=== PATIENT | female | born 1980 | race Caucasian/White ===

== ENCOUNTER 2019-03-06 09:58 | Emergency (ER) | payer SELFPAY ==
[~2019-03-06] VITALS: Ht 162.6 cm; Wt 72.6 kg
[2019-03-06 10:17] VITALS: BP 146/81
[2019-03-06 10:44] LABS: BILIRUBIN,URINE NEGATIVE (NEG); CLARITY,URINE CLOUDY; COLOR,URINE YELLOW; NITRITE,URINE NEGATIVE (NEG); PROTEIN,URINE 100 mg/dL (NEG-TRACE); UROBILINOGEN,URINE 0.2 mg/dL (0.2 mg/dL)
--- NOTE | 2019-03-06 11:12 | PHYS DOC ---
Past Medical History Past Medical History: No Pertinent History Past Surgical History: Alcohol Use: Occasionally Drug Use: None Adult General Chief Complaint Chief Complaint: PAIN ON URINATION [facility] HPI Patient is a 38 year old female who presents with urinary frequency, dysuria this been ongoing for 3 days. The patient denies any fever. Denies any other complaints. Review of Systems Review of Systems Constitutional: Denies fever or chills [] Eyes: Denies change in visual acuity, redness, or eye pain [] HENT: Denies nasal congestion or sore throat [] Respiratory: Denies cough or shortness of breath [] Cardiovascular: No additional information not addressed in HPI [] GI: Denies abdominal pain, nausea, vomiting, bloody stools or diarrhea [] : Reports dysuria and frequency. Musculoskeletal: Denies back pain or joint pain [] Integument: Denies rash or skin lesions [] Neurologic: Denies headache, focal weakness or sensory changes [ Complete systems were reviewed and found to be within normal limits, except as documented in this note. Physical Exam Physical Exam Constitutional: Well developed, well nourished, no acute distress, non-toxic appearance. [] HENT: Normocephalic, atraumatic, bilateral external ears normal, oropharynx moist, no oral exudates, nose normal. [] Eyes: PERRLA, EOMI, conjunctiva normal, no discharge. [] Neck: Normal range of motion, no tenderness, supple, no stridor. [] Skin: Warm, dry, no erythema, no rash. [] Back: No tenderness, no CVA tenderness. [] Extremities: No tenderness, no cyanosis, no clubbing, ROM intact, no edema. [] Neurologic: Alert and oriented X 3, normal motor function, normal sensory function, no focal deficits noted. [] Psychologic: Affect normal, judgement normal, mood normal. [] Current Patient Data Vital Signs Vital Signs Date Time Temp Pulse Resp B/P (MAP) Pulse Ox O2 Delivery O2 Flow Rate FiO2 03/06/19 10:17 98.0 94 16 146/81 (102) 99 Room Air 98.0 Lab Values Laboratory Tests Test 03/06/19 10:05 03/06/19 10:15 Urine Collection Type Unknown Urine Color Yellow Urine Clarity Cloudy Urine pH 6.0 Urine Specific Joseph 1.020 Urine Protein 100 mg/dL (NEG-TRACE) Urine Glucose (UA) Negative mg/dL (NEG) Urine Ketones (Stick) Trace mg/dL (NEG) Urine Blood Moderate (NEG) Urine Nitrite Negative (NEG) Urine Bilirubin Negative (NEG) Urine Urobilinogen Dipstick 0.2 mg/dL (0.2 mg/dL) Urine Leukocyte Esterase Large (NEG) Urine RBC 11-20 /HPF (0-2) Urine WBC >40 /HPF (0-4) Urine Squamous Epithelial Cells Few /LPF Urine Bacteria Moderate /HPF (0-FEW) Urine Mucus Marked /LPF POC Urine HCG, Qualitative Hcg negative (Negative) EKG EKG [] Radiology/Procedures Radiology/Procedures [] Course & Med Decision Making Course & Med Decision Making Pertinent Labs and Imaging studies reviewed. (See chart for details) Will get UA/Preg Test. Urine shows leukocytes with hematuria. Will prescribe Keflex for UTI. Dragon Disclaimer Dragon Disclaimer This electronic medical record was generated, in whole or in part, using a voice recognition dictation system. Departure Departure Impression: Primary Impression: Urinary tract infection Disposition: HOME, SELF-CARE Condition: STABLE Referrals: NO PCP (PCP) Patient Instructions: Urinary Tract Infection Additional Instructions: Thank you for visiting [facility]. We appreciate you trusting us with your care. If any additional problems come up don't hesitate to return to visit us. Please follow up with your primary care provider so they can plan additional care if needed and know about the problem that you had. If symptoms worsen come back to the Emergency Department. Any concerning symptoms that start such as chest pain, shortness of air, weakness or numbness on one side of the body, running high fevers or any other concerning symptoms return to the ER. You have been prescribed an antibiotic today to help fight your infection. Please take all of the antibiotic as directed. If after 48 hours the infection is not improving, please return for more care. If the infection worsens, return to ER for additional care. Scripts Cephalexin (KEFLEX) 500 Mg Capsule 1 CAP PO BID for 7 Days, #14 CAP 0 Refills Prov: JOHNSTONWILLIAM APRN 03/06/19 Problem Qualifiers Primary Impression: Urinary tract infection Urinary tract infection type: acute cystitis Hematuria presence: with hematuria Qualified Codes: N30.01 - Acute cystitis with hematuria WILLIAM JOHNSTON APRN Mar 06, 2019 11:12
[2019-03-06 11:18] LABS: BACTERIA,URINE MODERATE /HPF (0-FEW); SQUAMOUS EPITHELIAL CELL,UR FEW /LPF; WBC,URINE >40 /HPF (0-4)
[2019-03-06] MEDS ORDERED: CEPH-264 PO (11:26)
== END 2019-03-06 11:43 | disposition home or self-care (01) ==
LOC: ER 09:58
DX: N30.01 Acute cystitis with hematuria (principal); Z98.890 Other specified postprocedural states
CPT/HCPCS: 81001; 81025; 87086; 87186; 99284

== ENCOUNTER 2019-11-11 14:13 | Emergency (ER) | payer SELFPAY ==
[~2019-11-11] VITALS: Ht 162.6 cm; Wt 68.0 kg
[~2019-11-11 14:13] MED LIST: CEPH-264 PO
[2019-11-11 14:22] VITALS: BP 136/89
[2019-11-11] MEDS ORDERED: SULF1TAB23 PO (14:48)
--- NOTE | 2019-11-11 14:48 | PHYS DOC ---
Past Medical History Past Medical History: No Pertinent History Past Surgical History: Smoking Status: Current Every Day Smoker Alcohol Use: Occasionally Drug Use: None General Adult EDM: Chief Complaint: UPPER EXTREMITY PAIN HPI: HPI: Patient is a 39 year old female who presents to the ED today with multiple complaints. Patient is complaining of a wound/abscess on the right forearm for 1 week. She states she used [id number] remedy and the abscess opened up and drained. She is also complaining of another wound on the right foot that she believes had a splinter. She does not know if she removed the splint or not but she states she has pain to the area when she walks. She is also concerned she has an STD and would like to be and treated. She states the boyfriend has been running "wild" and came back and gave her chavez and whenever this happens it means he is cheating. Review of Systems: Review of Systems: Constitutional: Denies fever or chills. [] GI: Denies abdominal pain, nausea, vomiting, bloody stools or diarrhea. [] : Reports concern for STDs. Denies dysuria. [] Musculoskeletal: Denies back pain or joint pain. [] Integument: Reports wound to the right forearm and right foot. Neurologic: Denies headache, focal weakness or sensory changes. [] Psychiatric: Denies depression or anxiety. [] Heart Score: Risk Factors: Risk Factors: DM, Current or recent (<one month) smoker, HTN, HLP, family history of CAD, obesity. Risk Scores: Score 0 - 3: 2.5% MACE over next 6 weeks - Discharge Home Score 4 - 6: 20.3% MACE over next 6 weeks - Admit for Clinical Observation Score 7 - 10: 72.7% MACE over next 6 weeks - Early Invasive Strategies Physical Exam: PE: Constitutional: Well developed, well nourished, no acute distress, non-toxic appearance. [] Abdomen: Bowel sounds normal, soft, no tenderness, no masses, no pulsatile masses. [] Skin: Warm, dry, right mid forearm with an open abscess approximately 2 x 2 cm with surrounding cellulitis. Right dorsal foot between the big toe and the second toe metatarsal distal end with an open area approximately 0.5 cm. There is trace cellulitis around this region. +2 right pedal pulse. +2 right radial pulse. Full range of motion to the right upper and lower extremities. Cap refill less than 2 seconds the right upper and lower extremities. She has multiple track negrete on the upper and lower extremities suspicious of drug use. Back: No tenderness, no CVA tenderness. [] Extremities: No tenderness, no cyanosis, no clubbing, ROM intact, no edema. [] Neurologic: Alert and oriented X 3, normal motor function, normal sensory function, no focal deficits noted. [] Psychologic: Patient is restless, appears to be intoxicated on something. EKG: EKG: [] Radiology/Procedures: Radiology/Procedures: [] Course & Med Decision Making: Course & Med Decision Making Pertinent Labs and Imaging studies reviewed. (See chart for details) This is a 39-year-old female patient presenting to the ED today with complaints of abscess to the right forearm and right foot. Abscess of the right forearm is already opened and drained. Right foot appears to be in open wound with no drainage. She has track negrete to upper and lower extremities suspicious of drug use Patient would also like to be treated for STDs. Patient was given STD treatment in the ED, tetanus updated. Discharged on Bactrim. Provided return precautions and discharged in stable condition. Dragon Disclaimer: Dragon Disclaimer: This electronic medical record was generated, in whole or in part, using a voice recognition dictation system. Departure Departure Impression: Primary Impression: Concern about STD in female without diagnosis Additional Impressions: Abscess of right forearm Wound of right foot Disposition: 01 HOME, SELF-CARE Condition: STABLE Referrals: NO PCP (PCP) Follow-up with your own doctor in 1 to 2 weeks Patient Instructions: Abscess Additional Instructions: Please complete the prescribed antibiotics. Clean your wounds with soap and quentin er daily. Ensure you soak the upper and lower extremity wounds in warm water with Epsom salts twice a day. Take the prescribed antibiotics until completed. Ensure you contact your sex partners and let them know you were treated for STDs and ask them to seek treatment too. Scripts Sulfamethoxazole/Trimethoprim (BACTRIM 400-80 MG TABLET) 1 Each Tablet 1 TAB PO BID for 10 Days, #20 TAB 0 Refills Prov: RENEEADA ESTELLE 11/11/19 Justicifation of Admission Dx: Justifications for Admission: Justification of Admission Dx: N/A ADA DURAN APRN Nov 11, 2019 14:48
[2019-11-11] MEDS: AZITHROMYCIN 250 MG TABLET. PO ONE (15:10)
[2019-11-11] MEDS: metroNIDAZOLE 500 MG TABLET PO ONE (15:10)
[2019-11-11] MEDS: cefTRIAXone IM 250 MG VIAL IM ONE (15:12)
[2019-11-11] MEDS: DIPH,PERTUSS(ACELL),TET VAC/PF 0.5 ML SYRINGE. VAX IM ONE (15:12)
== END 2019-11-11 15:13 | disposition home or self-care (01) ==
LOC: ER 14:13
DX: L02.413 Cutaneous abscess of right upper limb (principal); L02.611 Cutaneous abscess of right foot; Z20.2 Contact with and (suspected) exposure to infections with a predominantly sexual mode of transmission; F17.200 Nicotine dependence, unspecified, uncomplicated
CPT/HCPCS: 90471; 90715; 96372; 99284; J0696

== ENCOUNTER 2019-11-19 14:00 | Emergency (ER) | payer SELFPAY ==
[~2019-11-19] VITALS: Ht 162.6 cm; Wt 66.4 kg
[~2019-11-19 14:00] MED LIST changes: +SULF1TAB23 PO
[2019-11-19 14:41] VITALS: BP 112/66
--- NOTE | 2019-11-19 15:09 | PHYS DOC ---
Past Medical History Past Medical History: Anxiety Past Surgical History: , Tubal ligation Smoking Status: Current Every Day Smoker Additional Information: 04/08 ppd Alcohol Use: Occasionally Drug Use: None General Adult EDM: Chief Complaint: UPPER EXTREMITY PAIN HPI: HPI: Patient is a 39-year-old female who presents to the emergency room complaining of left neck pain that radiates into her left arm. She has numbness in fingers 3 through 5 intermittently. She states that this has been ongoing for the last 2 days. She had a tetanus shot 2 days ago and she thinks that this may be related as it was given in the same arm. She denies any fever, chills, sweats, trauma. Review of Systems: Review of Systems: General: Denies fever, chills, sweats, fatigue Eyes: Denies drainage, blurred vision, eye redness HENT: Denies rhinorrhea, sore throat, earache Respiratory: Denies cough, shortness of breath, wheezing Cardiac: Denies edema, palpitations, chest pain GI: Denies abdominal pain, Nausea, vomiting MSK: Denies back pain.reports neck pain Skin: Denies rash, jaundice Neuro: Denies headache, dizziness reports numbness in hand Psychiatric: Denies SI/HI Heart Score: Risk Factors: Risk Factors: DM, Current or recent (<one month) smoker, HTN, HLP, family history of CAD, obesity. Risk Scores: Score 0 - 3: 2.5% MACE over next 6 weeks - Discharge Home Score 4 - 6: 20.3% MACE over next 6 weeks - Admit for Clinical Observation Score 7 - 10: 72.7% MACE over next 6 weeks - Early Invasive Strategies Allergies: Allergies: Allergies Coded Allergies Type Severity Reaction Last Updated Verified poison nayana extract Allergy Unknown RASH 11/19/19 Yes Physical Exam: PE: General: Awake, alert, NAD. Well Nourished, well hydrated. Cooperative HEENT: Atraumatic, EOMI, PERRL, airway patent, moist oral mucosa Neck: Supple, trachea midline, no cervical spine tenderness, paraspinal tendern ess Respiratory: CTA bilaterally, normal effort, no wheezing/crackles CV: RRR, no murmur, cap refill <2 GI: Soft, nondistended, nontender, no masses MSK: No obvious deformities, left shoulder appears normal with no signs of erythema or swelling Skin: Warm, dry, intact Neuro: A&O x3, speech NL, sensory and motor grossly intact, no focal deficits Psych: Normal affect, normal mood, not suicidal or homicidal Current Patient Data: Vital Signs: Vital Signs Date Time Temp Pulse Resp B/P (MAP) Pulse Ox O2 Delivery O2 Flow Rate FiO2 11/19/19 14:41 98.4 83 20 112/66 (81) 97 Room Air 98.4 EKG: EKG: [] Radiology/Procedures: Radiology/Procedures: [] Course & Med Decision Making: Course & Med Decision Making Pertinent Labs and Imaging studies reviewed. (See chart for details) Patient is a 38-year-old female who presents to the emergency room as shooting pain down her arms with numbness in her fingers intermittently. Patient has a normal neurologic exam at this time. She does not have any cervical spine tenderness. There is no signs of erythema or swelling from her tetanus shot. This is likely cervical radiculopathy. She will be treated with NSAIDs and a dose of steroids. Patient's test results and vitals while in the ED were fully reviewed and discussed with the patient. Patient is stable and at this time does not need admission to the hospital. We have discussed strict return precautions and the importance of following up with their Primary Care Physician. Patient stated understanding and was given an opportunity to ask any questions. Patient is in agreement with plan. Marelyon Disclaimer: Saloni Disclaimer: This electronic medical record was generated, in whole or in part, using a voice recognition dictation system. Departure Departure Impression: Primary Impression: Cervical radiculopathy Disposition: HOME, SELF-CARE Condition: STABLE Referrals: NO PCP (PCP) Patient Instructions: Cervical Radiculopathy, [id number] Justicifation of Admission Dx: Justifications for Admission: Justification of Admission Dx: No ADONAY LEON MD Nov 19, 2019 15:09
[2019-11-19] MEDS ORDERED: DEXAMETHASONE SOD PHOS 4 MG/ML VIAL PO ONE (15:15)
[2019-11-19] MEDS ORDERED: KETOROLAC TROMETHAMINE 10 MG TABLET PO PRN (15:15)
== END 2019-11-19 15:34 | disposition home or self-care (01) ==
LOC: ER 14:00
DX: M54.12 Radiculopathy, cervical region (principal); R20.0 Anesthesia of skin; F41.9 Anxiety disorder, unspecified; F17.200 Nicotine dependence, unspecified, uncomplicated; Z98.890 Other specified postprocedural states; Z98.51 Tubal ligation status; Z91.048 Other nonmedicinal substance allergy status
CPT/HCPCS: 99283; J1100

== ENCOUNTER 2020-04-28 15:32 | Emergency (ER) | payer SELFPAY ==
[~2020-04-28] VITALS: Ht 160 cm; Wt 70.5 kg
[2020-04-28 15:53] VITALS: BP 125/84
[2020-04-28] MEDS ORDERED: CLIN150C15 PO (16:10)
[2020-04-28] MEDS ORDERED: NAPR-514 PO (16:10)
--- NOTE | 2020-04-28 16:10 | ED.ADGEN ---
Past Medical History Past Medical History: Anxiety Past Surgical History: , Tubal ligation Smoking Status: Current Every Day Smoker Alcohol Use: Occasionally Drug Use: None General Adult EDM: Chief Complaint: DENTAL PROBLEM HPI: HPI: Patient is a 39 year old female who presents to the emergency department with complaints of right lower dental pain with facial swelling that began 2 to 3 days ago. She denies any fever, body aches, fatigue, nausea, vomiting, difficulty swallowing, or shortness of breath. The patient denies any ear pain. She currently rates pain a 10 out of 10 on the pain scale, she denies any drainage or bleeding from the area of her missing/broken tooth. Review of Systems: Review of Systems: Complete ROS is negative unless otherwise noted in HPI. Allergies: Allergies: Allergies Coded Allergies Type Severity Reaction Last Updated Verified poison nayana extract Allergy Unknown RASH 11/19/19 Yes Physical Exam: PE: See Above Constitutional: Well developed, well nourished, no acute distress, non-toxic appearance. [] HENT: Normocephalic, atraumatic, bilateral external ears normal, nose normal; swelling to right lower mandible, no palpable or visible dental abscess, diffuse dental decay with missing tooth in the affected area, gingival erythema and edema also present.. [] Eyes: PERRLA, EOMI, conjunctiva normal, no discharge. [] Neck: Normal range of motion, supple, nontender, no stridor. [] Cardiovascular:Heart rate regular rhythm Lungs & Thorax: Respirations even and unlabored, no retractions, no respiratory distress Skin: Warm, dry, no erythema, no rash. [] Extremities: No cyanosis, ROM intact, no edema. [] Neurologic: Alert and oriented X 3, no focal deficits noted. [] Psychologic: Affect normal, judgement normal, mood normal. [] EKG: EKG: [] Heart Score: Risk Factors: Risk Factors: DM, Current or recent (<one month) smoker, HTN, HLP, family history of CAD, obesity. Risk Scores: Score 0 - 3: 2.5% MACE over next 6 weeks - Discharge Home Score 4 - 6: 20.3% MACE over next 6 weeks - Admit for Clinical Observation Score 7 - 10: 72.7% MACE over next 6 weeks - Early Invasive Strategies Radiology/Procedures: Radiology/Procedures: [] Course & Med Decision Making: Course & Med Decision Making Pertinent Labs and Imaging studies reviewed. (See chart for details) [] Saloni Disclaimer: Dragon Disclaimer: This electronic medical record was generated, in whole or in part, using a voice recognition dictation system. Departure Departure Impression: Primary Impression: Infected dental caries Additional Impression: Dentalgia Disposition: 01 DC HOME SELF CARE/HOMELESS Condition: STABLE Referrals: NO PCP (PCP) Patient Instructions: Dental Caries, Dental Pain, [id number] Additional Instructions: Fill prescription(s) and use as directed. Follow up with dentist using the referral list provided. Return to the ER if symptoms worsen. Scripts Naproxen (NAPROXEN) 500 Mg Tablet 1 TAB PO BID PRN for PAIN for 10 Days, #20 TAB 0 Refills Prov: RAJNI MONROE APRN 04/28/20 Clindamycin Hcl (CLINDAMYCIN HCL) 150 Mg Capsule 450 MG PO TID for 7 Days, #63 CAP 0 Refills Prov: RAJNI MONROE APRN 04/28/20 Problem Qualifiers RAJNI MONROE APRN Apr 28, 2020 16:10
== END 2020-04-28 16:39 | disposition home or self-care (01) ==
LOC: ER 15:32
DX: K02.9 Dental caries, unspecified (principal); K08.89 Other specified disorders of teeth and supporting structures; R60.0 Localized edema; F41.9 Anxiety disorder, unspecified; F17.200 Nicotine dependence, unspecified, uncomplicated; Z98.51 Tubal ligation status; Z98.890 Other specified postprocedural states; Z88.8 Allergy status to other drugs, medicaments and biological substances
CPT/HCPCS: 99283

== ENCOUNTER 2020-05-09 18:21 | Emergency (ER) | payer SELFPAY ==
[~2020-05-09] VITALS: Ht 162.6 cm; Wt 70.0 kg
[~2020-05-09 18:21] MED LIST changes: +CLIN150C15 PO; +NAPR-514 PO
--- NOTE | 2020-05-09 19:02 | ED.ADGEN ---
Past Medical History Past Medical History: No Pertinent History, Anxiety Past Surgical History: , Tubal ligation Smoking Status: Current Every Day Smoker Alcohol Use: Occasionally Drug Use: None General Adult EDM: Chief Complaint: DENTAL PROBLEM HPI: HPI: Patient is a 39 year old female who presents emergency department with complaints of right lower jaw swelling that developed again today. Patient reports that she was seen here on 28 April and was prescribed antibiotics. She states that the swelling and the pain had resolved after taking those m edications however she took her last dose of the antibiotic earlier today and since then her jaw has swollen again. She currently rates the pain a 10 out of 10 on pain scale, she denies any fever, cough, body aches, sore throat, ear pain, fatigue, or rash. The patient denies any other complaints. Review of Systems: Review of Systems: Complete ROS is negative unless otherwise noted in HPI. Allergies: Allergies: Allergies Coded Allergies Type Severity Reaction Last Updated Verified poison nayana extract Allergy Unknown RASH 11/19/19 Yes Physical Exam: PE: Constitutional: Well developed, well nourished, no acute distress, non-toxic cindy earance. [] HENT: Normocephalic, atraumatic, bilateral external ears normal, nose normal; swelling to right anterior mandible, no palpable or visible dental abscess, diffuse dental decay with missing tooth in the affected area Eyes: PERRLA, EOMI, conjunctiva normal, no discharge. [] Neck: Normal range of motion, supple, nontender, no stridor. [] Cardiovascular:Heart rate regular rhythm Lungs & Thorax: Respirations even and unlabored, no retractions, no respiratory distress Skin: Warm, dry, no erythema, no rash. [] Extremities: No cyanosis, ROM intact, no edema. [] Neurologic: Alert and oriented X 3, no focal deficits noted. [] Psychologic: Affect normal, judgement normal, mood normal. [] Current Patient Data: Vital Signs: Vital Signs Date Time Temp Pulse Resp B/P (MAP) Pulse Ox O2 Delivery O2 Flow Rate FiO2 05/09/20 18:41 98.0 88 18 149/66 (93) 99 Room Air 98.0 EKG: EKG: [] Heart Score: Risk Factors: Risk Factors: DM, Current or recent (<one month) smoker, HTN, HLP, family history of CAD, obesity. Risk Scores: Score 0 - 3: 2.5% MACE over next 6 weeks - Discharge Home Score 4 - 6: 20.3% MACE over next 6 weeks - Admit for Clinical Observation Score 7 - 10: 72.7% MACE over next 6 weeks - Early Invasive Strategies Radiology/Procedures: Radiology/Procedures: [] Course & Med Decision Making: Course & Med Decision Making Pertinent Labs and Imaging studies reviewed. (See chart for details) [] Dragon Disclaimer: Dragon Disclaimer: This electronic medical record was generated, in whole or in part, using a voice recognition dictation system. Departure Departure Impression: Primary Impression: Infected dental caries Disposition: DC HOME SELF CARE/HOMELESS Condition: STABLE Referrals: NO PCP (PCP) Patient Instructions: Dental Caries-Brief Additional Instructions: Fill prescription(s) and use as directed. Follow up with dentist using the referral list provided. Return to the ER if symptoms worsen. Scripts Naproxen (NAPROXEN) 500 Mg Tablet 1 TAB PO BID PRN for PAIN for 10 Days, #20 TAB 0 Refills Prov: RAJNI MONROE APRN 05/09/20 Amoxicillin/Potassium Clav (AUGMENTIN 875-125 TABLET) 1 Each Tablet 1 TAB PO BID for 10 Days, #20 TAB 0 Refills Prov: RAJNI MONROE APRN 05/09/20 RAJNI MONROE APRN May 09, 2020 19:02
[2020-05-09] MEDS ORDERED: NAPR-514 PO (19:05)
[2020-05-09] MEDS ORDERED: AMOX1TAB61 PO (19:05)
[2020-05-09 19:10] VITALS: BP 149/68
== END 2020-05-09 19:10 | disposition home or self-care (01) ==
LOC: ER 18:21
DX: K02.7 Dental root caries (principal); K08.89 Other specified disorders of teeth and supporting structures; R60.0 Localized edema; F41.9 Anxiety disorder, unspecified; F17.200 Nicotine dependence, unspecified, uncomplicated; Z98.51 Tubal ligation status; Z98.890 Other specified postprocedural states; Z88.8 Allergy status to other drugs, medicaments and biological substances
CPT/HCPCS: 99283